=== PATIENT | female | born 2000 | race Caucasian/White ===

== ENCOUNTER 2019-04-26 17:26 | Emergency (ER) | payer BC ==
[2019-04-26] MEDS ORDERED: Sodium Chloride 0.9% 10 ML Syringe FLUSH PRN (17:35)
--- NOTE | 2019-04-26 17:39 | EDM.PDOC ---
ED HPI GENERAL MEDICAL PROBLEM - General Chief Complaint: PRODUCT DEVELOPMENT ACTUARY Problem Stated Complaint: ABD SHARP PAIN Time Seen by Provider: 04/26/19 17:36 Source of Information: Reports: Patient History Limitations: Reports: No Limitations - History of Present Illness INITIAL COMMENTS - FREE TEXT/NARRATIVE: Presents with LLQ pain after doing some lifting at work. Patient is , currently 19 5/7 weeks (EDC 09/15/19). Denies vaginal bleeding, discharge or N/V. Onset: Today Duration: Hour(s): (2) Location: Reports: Abdomen Quality: Reports: Ache Severity: Moderate L lower abdomen Pain Score (Numeric/FACES): 4 - Related Data Allergies Allergy/AdvReac Type Severity Reaction Status Date / Time No Known Allergies Allergy Verified 04/26/19 17:37 Home Meds: Home Meds Vit #76/Iron,Carb/Fa [Prenatabs Rx] 1 each PO DAILY 04/26/19 [History] Past Medical History - Past Health History Medical/Surgical History: Denies Medical/Surgical History Social & Family History - Tobacco Use Smoking Status *Q: Never Smoker - Alcohol Use Alcohol Use History: No ED ROS GENERAL - Review of Systems Review Of Systems: ROS reveals no pertinent complaints other than HPI. ED EXAM - Physical Exam Exam: See Below Exam Limited By: No Limitations General Appearance: Alert, WD/WN, No Apparent Distress Ears: Normal External Exam Nose: Normal Inspection Throat/Mouth: No Airway Compromise Head: Atraumatic, Normocephalic Neck: Full Range of Motion Respiratory/Chest: No Respiratory Distress, Lungs Clear, Normal Breath Sounds Cardiovascular: Regular Rate, Rhythm, No Murmur GI/Abdominal Exam: Normal Bowel Sounds, Soft, Tender (LLQ) Back Exam: Full Range of Motion Extremities: Normal Range of Motion Neurological: Alert, Normal Cognition, No Motor/Sensory Deficits Psychiatric: Normal Affect, Normal Mood Skin Exam: Warm, Dry, Intact Course - Vital Signs Last Recorded V/S: Last Vital Signs Temp 36.2 C 04/26/19 17:31 Pulse 89 04/26/19 17:31 Resp 18 04/26/19 17:31 BP 134/81 04/26/19 17:31 Pulse Ox 100 04/26/19 17:31 - Orders/Labs/Meds Orders: Active Orders 24 hr Category Date Time Status OB 2 Or 3 Tri Sgl 1st Gest [US] Stat Exams 04/26/19 17:29 Taken Lactated Ringers [Ringers, Lactated] 1,000 ml Med 04/26/19 17:45 Active IV ASDIRECTED Sodium Chloride 0.9% [Saline Flush] Med 04/26/19 17:35 Active 10 ml FLUSH ASDIRECTED PRN Saline Lock Insert [OM.PC] Routine Oth 04/26/19 17:35 Ordered Medication Orders Lactated Ringer's (Ringers, Lactated) 1,000 mls @ 999 mls/hr IV ASDIRECTED ALIS Sodium Chloride (Saline Flush) 10 ml FLUSH ASDIRECTED PRN PRN Reason: Keep Vein Open Labs: Laboratory Tests 04/26/19 04/26/19 04/26/19 Range/Units 17:38 17:38 17:48 WBC 11.6 (4.5-12.0) X10-3/uL RBC 4.23 (3.23-5.20) x10(6)uL Hgb 12.5 (11.5-15.5) g/dL Hct 37.6 (30.0-51.3) % MCV 88.9 (80-96) fL MCH 29.6 (27.7-33.6) pg MCHC 33.3 (32.2-35.4) g/dL RDW 14.6 (11.5-15.5) % Plt Count 247 (125-369) X10(3)uL MPV 7.7 (7.4-10.4) fL Neut % (Auto) 79.7 (46-82) % Lymph % (Auto) 11.8 L (13-37) % Morrill % (Auto) 6.9 (4-12) % Eos % (Auto) 1 (1.0-5.0) % Baso % (Auto) 1 (0-2) % Neut # (Auto) 9.2 H (1.6-8.3) # Lymph # (Auto) 1.4 (0.6-5.0) # Morrill # (Auto) 0.8 (0.0-1.3) # Eos # (Auto) 0.1 (0.0-0.8) # Baso # (Auto) 0.1 (0.0-0.2) # Sodium (135-145) mmol/L Potassium (3.5-5.3) mmol/L Chloride (100-110) mmol/L Carbon Dioxide (21-32) mmol/L BUN (7-18) mg/dL Creatinine (0.55-1.02) mg/dL Est Cr Clr Drug Dosing mL/min Estimated GFR (MDRD) (>60) BUN/Creatinine Ratio (9-20) Glucose (80-116) mg/dL Calcium (8.6-10.2) mg/dL Total Bilirubin (0.1-1.3) mg/dL AST (5-25) IU/L ALT (12-36) U/L Alkaline Phosphatase (56-112) IU/L Total Protein (6.0-8.0) g/dL Albumin (3.5-5.2) g/dL Globulin g/dL Albumin/Globulin Ratio Urine Color Yellow (YELLOW) Urine Appearance Slightly cloudy (CLEAR) Urine pH 6.0 (5.0-6.5) Ur Specific [place] 1.025 (1.010-1.025) Urine Protein Negative (NEGATIVE) mg/dL Urine Glucose (UA) Normal (NORMAL) mg/dL Urine Ketones Negative (NEGATIVE) mg/dL Urine Occult Blood Negative (NEGATIVE) Urine Nitrite Negative (NEGATIVE) Urine Bilirubin Negative (NEGATIVE) Urine Urobilinogen Normal (NEGATIVE) mg/dL Ur Leukocyte Esterase Negative (NEGATIVE) Urine RBC 0-5 (0-5) Urine WBC 0-5 (0-5) Ur Squamous Epith Cells Moderate H (NS,R,O) Urine Bacteria Few H (NS) Urine Opiates Screen Negative (NEGATIVE) Ur Oxycodone Screen Negative (NEGATIVE) Ur Propoxyphene Screen Negative (NEGATIVE) Ur Barbituates Screen Negative (NEGATIVE) Ur Tricyclics Screen Negative (NEGATIVE) Ur Phencyclidine Scrn Negative (NEGATIVE) Ur Amphetamine Screen Negative (NEGATIVE) Urine MDMA Screen Negative (NEGATIVE) U Benzodiazepines Scrn Negative (NEGATIVE) U Cocaine Metab Screen Negative (NEGATIVE) U Marijuana (THC) Screen Negative (NEGATIVE) 04/26/19 Range/Units 17:48 WBC (4.5-12.0) X10-3/uL RBC (3.23-5.20) x10(6)uL Hgb (11.5-15.5) g/dL Hct (30.0-51.3) % MCV (80-96) fL MCH (27.7-33.6) pg MCHC (32.2-35.4) g/dL RDW (11.5-15.5) % Plt Count (125-369) X10(3)uL MPV (7.4-10.4) fL Neut % (Auto) (46-82) % Lymph % (Auto) (13-37) % Morrill % (Auto) (4-12) % Eos % (Auto) (1.0-5.0) % Baso % (Auto) (0-2) % Neut # (Auto) (1.6-8.3) # Lymph # (Auto) (0.6-5.0) # Morrill # (Auto) (0.0-1.3) # Eos # (Auto) (0.0-0.8) # Baso # (Auto) (0.0-0.2) # Sodium 138 (135-145) mmol/L Potassium 3.5 (3.5-5.3) mmol/L Chloride 101 (100-110) mmol/L Carbon Dioxide 22 (21-32) mmol/L BUN 14 (7-18) mg/dL Creatinine 0.7 (0.55-1.02) mg/dL Est Cr Clr Drug Dosing 108.32 mL/min Estimated GFR (MDRD) > 60 (>60) BUN/Creatinine Ratio 20.0 (9-20) Glucose 77 L (80-116) mg/dL Calcium 9.5 (8.6-10.2) mg/dL Total Bilirubin 0.5 (0.1-1.3) mg/dL AST 21 (5-25) IU/L ALT 23 (12-36) U/L Alkaline Phosphatase 91 (56-112) IU/L Total Protein 7.5 (6.0-8.0) g/dL Albumin 3.4 L (3.5-5.2) g/dL Globulin 4.1 g/dL Albumin/Globulin Ratio 0.8 Urine Color (YELLOW) Urine Appearance (CLEAR) Urine pH (5.0-6.5) Ur Specific [place] (1.010-1.025) Urine Protein (NEGATIVE) mg/dL Urine Glucose (UA) (NORMAL) mg/dL Urine Ketones (NEGATIVE) mg/dL Urine Occult Blood (NEGATIVE) Urine Nitrite (NEGATIVE) Urine Bilirubin (NEGATIVE) Urine Urobilinogen (NEGATIVE) mg/dL Ur Leukocyte Esterase (NEGATIVE) Urine RBC (0-5) Urine WBC (0-5) Ur Squamous Epith Cells (NS,R,O) Urine Bacteria (NS) Urine Opiates Screen (NEGATIVE) Ur Oxycodone Screen (NEGATIVE) Ur Propoxyphene Screen (NEGATIVE) Ur Barbituates Screen (NEGATIVE) Ur Tricyclics Screen (NEGATIVE) Ur Phencyclidine Scrn (NEGATIVE) Ur Amphetamine Screen (NEGATIVE) Urine MDMA Screen (NEGATIVE) U Benzodiazepines Scrn (NEGATIVE) U Cocaine Metab Screen (NEGATIVE) U Marijuana (THC) Screen (NEGATIVE) Meds: Medications Generic Name Dose Route Start Last Admin Trade Name Freq PRN Reason Stop Dose Admin Lactated Ringer's 1,000 mls @ 999 mls/hr 04/26/19 17:45 Ringers, Lactated IV ASDIRECTED ALIS Sodium Chloride 10 ml 04/26/19 17:35 Saline Flush FLUSH ASDIRECTED PRN Keep Vein Open - Radiology Interpretation Free Text/Narrative:: OB US: IUP, good movement, FHT 160, no abruption, no adnexal masses (per Romain Lockhart, [place] tech). - Re-Assessments/Exams Free Text/Narrative Re-Assessment/Exam: 04/26/19 19:05 BP rechecked at 107/61. Feels better after IVF. Pt refuses Tylenol at this time. Departure - Departure Time of Disposition: 19:06 Disposition: Home, Self-Care 01 Condition: Good Clinical Impression: Round ligament pain, Intrauterine - Discharge Information *PRESCRIPTION DRUG MONITORING PROGRAM REVIEWED*: No *COPY OF PRESCRIPTION DRUG MONITORING REPORT IN PATIENT RIVERA: Not Applicable Instructions: Second Trimester of , Round Ligament Pain Referrals: Pelon Viveros MD [Primary Care Provider] - 3 Days Forms: ED Department Discharge, ED Return to Work/School Form Additional Instructions: Rest, fluids. You may take OTC Tylenol as needed for pain. Avoid lifting greater than 10 lbs for 1 week, or until your OB doctor recommends. Follow up with your primary physician in 3 days. - My Orders Last 24 Hours: My Active Orders 04/26/19 17:29 OB 2 Or 3 Tri Sgl 1st Gest [US] Stat 04/26/19 17:35 Sodium Chloride 0.9% [Saline Flush] 10 ml FLUSH ASDIRECTED PRN Saline Lock Insert [OM.PC] Routine 04/26/19 17:45 Lactated Ringers [Ringers, Lactated] 1,000 ml IV ASDIRECTED - Assessment/Plan Last 24 Hours: My Active Orders 04/26/19 17:29 OB 2 Or 3 Tri Sgl 1st Gest [US] Stat 04/26/19 17:35 Sodium Chloride 0.9% [Saline Flush] 10 ml FLUSH ASDIRECTED PRN Saline Lock Insert [OM.PC] Routine 04/26/19 17:45 Lactated Ringers [Ringers, Lactated] 1,000 ml IV ASDIRECTED
[2019-04-26] MEDS ORDERED: Lactated Ringers 1,000 ML IV SCH (17:45)
--- NOTE | 2019-04-27 11:49 | US ---
INDICATION: Abdominal pain after lifting. OB ULTRASOUND FOLLOWUP, FIRST GESTATION: Multiple ultrasonic images were obtained 04/26/19 - no comparisons. A single intrauterine gestation is noted with longitudinal lie and cephalic presentation with a normal amount of amniotic fluid. The amniotic fluid is relatively echogenic, which is unusual in this gestational age group. The placenta appears to be intact without evidence of previa or abruption and is fundal, anterior and posterior, with satisfactory grade 1. No adnexal mass lesions or free fluid collections were identified. The cervix appears to be intact and measures 3.4 cm. The ovaries were normal, measuring on the left, 2.16 x 1.22 x 2.38 cm; and on the right, 1.44 x 1.48 x 1.92 cm with what appears to be an involuting cyst, possibly an involuting corpus luteum cyst. A 3-vessel cord was noted. Gestational age measurements of head circumference and biparietal diameter were closely grouped: BPD - 20 weeks, HC - 19 weeks, 4 days. These averaged 19 weeks, 6 days, which is 1 day ahead of the LMP GA of 19 weeks , 5 days. OSBALDO by ultrasound is 09/14/19, compared with 09/15/19 for the LMP OSBALDO. A regular heart rate of 124 BPM was noted. IMPRESSION: No posttraumatic changes noted with essentially normal appearing IUP of 19 weeks, 6 days, only 1 day ahead of the LMP GA. OSBALDO by ultrasound is 09/14/19. MTDD
== END 2019-04-26 19:22 | disposition home or self-care (01) ==
LOC: FB.ED 17:26
DX: O99.89 Other specified diseases and conditions complicating pregnancy, childbirth and the puerperium (principal); R10.2 Pelvic and perineal pain; Z3A.19 19 weeks gestation of pregnancy
CPT/HCPCS: 36415; 76805; 76816; 80053; 80305-QW; 81001; 85025; 96360; 99284-25; J7120

== ENCOUNTER 2023-04-09 02:06 | Emergency (ER) | payer SELFPAY ==
[2023-04-09] MEDS ORDERED: Amoxicillin 500 MG Cap PO ONE (02:07)
[2023-04-09] MEDS ORDERED: Hydrocortisone/Neomycin/Polymyxin B Otic Susp 10 ML Bottle EARBOTH ONE (02:07)
== END 2023-04-09 02:57 | disposition home or self-care (01) ==
LOC: FB.ED 02:06
DX: H60.312 Diffuse otitis externa, left ear (principal)
CPT/HCPCS: 99282; A9270